=== PATIENT | female | born 1960 | race Caucasian/White ===

== ENCOUNTER 2016-10-02 06:00 | Day surgery (SDC) | payer OTHER ==
[~2016-10-02] VITALS: Ht 167.6 cm; Wt 64.4 kg
[~2016-10-02 06:00] MED LIST: MULT-634 PO
[2016-10-02] MEDS ORDERED: ROCURONIUM BROMIDE 10 MG/ML (ZEMURON) IV ONE (07:15)
[2016-10-02] MEDS ORDERED: SEVOFLURANE 15 MIN GAS INH ONE (07:15)
[2016-10-02] MEDS ORDERED: NS 100 ML BAG IV ONE (07:15)
[2016-10-02] MEDS ORDERED: fentaNYL CITRATE 250 MCG/5 ML AMP IV ONE (07:15)
[2016-10-02] MEDS ORDERED: BUPIVACAINE /EPINEPHRINE/PF 0.5% 30 ML VIAL INJ ONE (07:15)
[2016-10-02] MEDS ORDERED: AMPICILLIN SODIUM/SULBACTAM NA 3 GM VIAL IV ONE (07:15)
[2016-10-02] MEDS ORDERED: DEXAMETHASONE SOD PHOSPHATE 4 MG/ML VIAL IVP ONE (07:15)
[2016-10-02] MEDS ORDERED: MIDAZOLAM HCL 5 MG/5 ML VIAL IVP ONE (07:15)
[2016-10-02] MEDS ORDERED: CLINDAMYCIN PHOSPHATE 600 mg/50mL D5W IV ONE (07:15)
[2016-10-02] MEDS ORDERED: ONDANSETRON HCL 4 MG/2 ML VIAL IVP ONE (07:15)
[2016-10-02] MEDS ORDERED: HYDROmorphone 2 MG/ML VIAL IVP PRN ×2 (09:15)
[2016-10-02] MEDS ORDERED: MEPERIDINE HCL/PF 25 MG/ML DISP.SYRIN IVP PRN (09:15)
[2016-10-02] MEDS ORDERED: HYDROmorphone 1 MG INJ. 1 MG/ML AMPUL IVP PRN (09:15)
[2016-10-02] MEDS ORDERED: ONDANSETRON HCL 4 MG/2 ML VIAL IVP PRN (09:45)
[2016-10-02] MEDS ORDERED: IBUPROFEN 800 MG TABLET PO PRN (09:45)
[2016-10-02] MEDS ORDERED: OXYCODONE/ACETAMINOPHEN 5-325 TABLET PO PRN ×2 (09:45)
[2016-10-02] MEDS ORDERED: MEPERIDINE HCL/PF 25 MG/ML DISP.SYRIN ONE (10:38)
[2016-10-02 11:25] VITALS: BP_SYST 110
[2016-10-02] MEDS: LR 1,000 ML IV SCH ×2 (12:30→14:48)
== END 2016-10-02 15:00 | disposition home or self-care (01) ==
LOC: SDS 06:00 → SMU 06:01 → SDS 15:00
PROVIDERS: ATTEND Obstetrics & Gynecology
DX: D25.1 Intramural leiomyoma of uterus (principal); J45.909 Unspecified asthma, uncomplicated; C44.311 Basal cell carcinoma of skin of nose; C50.919 Malignant neoplasm of unspecified site of unspecified female breast; Z85.828 Personal history of other malignant neoplasm of skin; Z88.8 Allergy status to other drugs, medicaments and biological substances; Z88.0 Allergy status to penicillin
CPT/HCPCS: 36415; 58571; 86886; 86900; 86901; 88307; J0295; J1100; J2175; J2250; J2405; J3010; J3490 ×2; J7120; E0190